=== PATIENT | female | born 1995 | race Two or more races ===

== ENCOUNTER 2023-01-22 11:13 | Emergency (ER) | payer OTHER ==
[~2023-01-22] VITALS: Ht 165.1 cm; Wt 62.3 kg
[2023-01-22] MEDS ORDERED: OMEP20CA12 PO (11:41)
[2023-01-22 11:46] VITALS: BP 107/73
[2023-01-22 12:03] LABS: COVID AG,FIA SOURCE NASAL SWAB
[2023-01-22 12:52] LABS: RAPID GROUP A STREP NEGATIVE (NEGATIVE)
[2023-01-22 12:56] LABS: INFLUENZA TYPE A NEGATIVE FOR TYPE A (NEGATIVE); INFLUENZA TYPE B NEGATIVE FOR TYPE B (NEGATIVE)
[2023-01-22] MEDS ORDERED: BENZ-227 PO (13:31)
[2023-01-22] MEDS ORDERED: FLUT16SP NASAL (13:58)
== END 2023-01-22 13:44 | disposition home or self-care (01) ==
LOC: EMS 11:13
DX: J06.9 Acute upper respiratory infection, unspecified (principal); Z98.890 Other specified postprocedural states; Z20.822 Contact with and (suspected) exposure to COVID-19
CPT/HCPCS: 87430; 87804; 99283